=== PATIENT | male | born 1960 | race American Indian/Alaskan Native ===

== ENCOUNTER 2018-05-10 08:57 | Outpatient (CLI) | payer OTHER ==
--- NOTE | 2018-05-10 10:05 | XRay Report ---
XRAY LEFT SHOULDER THREE VIEWS: 05/10/18 08:57:00 CLINICAL: Shoulder pain. FINDINGS: Normal bone mineralization and no bone lesion. No fracture or dislocation. Very mild glenohumeral joint arthritis. Normal AC joint. The soft tissues are normal. IMPRESSION: Very mild glenohumeral joint arthritis.
== END 2018-05-10 08:58 | disposition home or self-care (01) ==
LOC: XRAY 08:57
PROVIDERS: ATTEND Internal Medicine
DX: M19.012 Primary osteoarthritis, left shoulder (principal)

== ENCOUNTER 2019-03-31 14:34 | Emergency (ER) | payer SELFPAY ==
--- NOTE | 2019-03-31 18:05 | Event Note ---
ED Screening Note ED Screening Note: states that he has dysuria that began 2-3 days states he has an enlarged prostate no urinary retention no fever no penile discharge no edema or pain in the testicles no abd pain PMHx none no allergies to meds This initial assessment/diagnostic orders/clinical plan/treatment(s) is/are subject to change based on patients health status, clinical progression and re- assessment by fellow clinical providers in the ED. Further treatment and workup at subsequent clinical providers discretion. Patient/guardian urged not to elope from the ED as their condition may be serious if not clinically assessed and managed. Initial orders include: UA
[2019-03-31 19:05] LABS: Bilirubin,Urine NEG (Negative); Blood,Urine SM (Negative); Color,Urine Yellow (Yellow); Mucus,Urine FEW /HPF; Protein,Urine <15 mg/dL mg/dL (Negative)
[2019-03-31] MEDS ORDERED: levoFLOXacin 500 MG TAB PO ONE (20:53)
[2019-03-31] MEDS ORDERED: PHENAZOPYRIDINE 200 MG TAB PO ONE (20:53)
--- NOTE | 2019-03-31 21:15 | Emergency Department Report ---
ED Male HPI - General Chief complaint: Urogenital-Male Stated complaint: BURNING WITH URINATION Time Seen by Provider: 03/31/19 18:04 Source: patient Mode of arrival: Ambulatory Limitations: No Limitations - History of Present Illness Initial comments: Patient is a 58-year-old, male with a history of chronic BPH who presents to the ED with complaint of acute onset persistent dysuria, urinary frequency and urgency for the last 3 days. Patient states that in the last 12 are dysuria and urinary urgency and frequency of worsened. Patient denies testicular pain, penile discharge, scrotal swelling, traumatic injury, low back pain, hematuria, fever, chills, nausea, vomiting, abdominal pain or diarrhea. MD Complaint: dysuria, other (urinary urgency and frequency) -: Sudden, days(s) (3) Location: penis Radiation: none Severity: severe Severity scale (0 -10): 7 Quality: burning, sharp Consistency: intermittent Improves with: none Worsens with: urination denies other symptoms, dysuria. denies: discharge, swelling, mass, rash, urinary retention, blood in urine, fever, nausea/vomiting, incontinence, other - Related Data Sexually active: Yes Previous Rx's Medication Instructions Recorded Last Taken Type Azithromycin [Zithromax TAB] 250 mg PO QDAY #6 tablet 10/27/14 Unknown Rx Promethazine /Codeine 5 ml PO Q6H PRN #100 ml 10/27/14 Unknown Rx [Phenergan/Codeine 6.25-10 mg/5Ml] Doxycycline Hyclate 100 mg PO Q12H #20 tablet. 03/31/19 Unknown Rx Phenazopyridine [Pyridium] 200 mg PO Q8H #21 tab 03/31/19 Unknown Rx levoFLOXacin [Levaquin TAB] 500 mg PO QDAY #10 tablet 03/31/19 Unknown Rx Allergies Allergy/AdvReac Type Severity Reaction Status Date / Time No Known Allergies Allergy Unverified 10/27/14 01:21 ED Review of Systems ROS: Stated complaint: BURNING WITH URINATION Other details as noted in HPI Constitutional: denies: chills, fever Eyes: denies: eye pain, eye discharge, vision change ENT: denies: ear pain, throat pain Respiratory: denies: cough, shortness of breath, wheezing Cardiovascular: denies: chest pain, palpitations Endocrine: no symptoms reported Gastrointestinal: denies: abdominal pain, nausea, diarrhea Genitourinary: urgency, dysuria, frequency Musculoskeletal: denies: back pain, joint swelling, arthralgia Skin: denies: rash, lesions Neurological: denies: headache, weakness, paresthesias Psychiatric: denies: anxiety, depression Hematological/Lymphatic: denies: easy bleeding, easy bruising ED Past Medical Hx - Past Medical History Previous Medical History?: Yes Hx HIV: Yes - Surgical History Past Surgical History?: No - Social History Smoking Status: Never Smoker Substance Use Type: None - Medications Home Medications: Home Medications Medication Instructions Recorded Confirmed Last Taken Type Azithromycin [Zithromax TAB] 250 mg PO QDAY #6 tablet 10/27/14 Unknown Rx Promethazine /Codeine 5 ml PO Q6H PRN #100 ml 10/27/14 Unknown Rx [Phenergan/Codeine 6.25-10 mg/5Ml] Doxycycline Hyclate 100 mg PO Q12H #20 tablet. 03/31/19 Unknown Rx Phenazopyridine [Pyridium] 200 mg PO Q8H #21 tab 03/31/19 Unknown Rx levoFLOXacin [Levaquin TAB] 500 mg PO QDAY #10 tablet 03/31/19 Unknown Rx ED Physical Exam - General Limitations: No Limitations General appearance: alert, in no apparent distress - Head Head exam: Present: atraumatic, normocephalic, normal inspection - Eye Eye exam: Present: normal appearance, PERRL, EOMI Pupils: Present: normal accommodation - ENT ENT exam: Present: normal exam, normal orophraynx, mucous membranes moist, TM's normal bilaterally, normal external ear exam - Neck Neck exam: Present: normal inspection, full ROM - Respiratory Respiratory exam: Present: normal lung sounds bilaterally. Absent: respiratory distress, wheezes, rales, chest wall tenderness, accessory muscle use, decreased breath sounds - Cardiovascular Cardiovascular Exam: Present: regular rate, normal rhythm, normal heart sounds. Absent: systolic murmur, diastolic murmur, rubs, gallop - GI/Abdominal GI/Abdominal exam: Present: soft, normal bowel sounds. Absent: tenderness, guarding, hyperactive bowel sounds, hypoactive bowel sounds - exam: Present: normal inspection External exam: Present: normal external exam - Extremities Exam Extremities exam: Present: normal inspection, full ROM, normal capillary refill - Back Exam Back exam: Present: normal inspection, full ROM. Absent: CVA tenderness (L), muscle spasm, paraspinal tenderness, vertebral tenderness - Neurological Exam Neurological exam: Present: alert, oriented X3, CN II-XII intact, normal gait, reflexes normal - Psychiatric Psychiatric exam: Present: normal affect, normal mood - Skin Skin exam: Present: warm, dry, intact, normal color. Absent: rash ED Course Vital Signs 03/31/19 14:40 Temperature 97.8 F Pulse Rate 76 Respiratory 13 Rate Blood Pressure 153/92 [Left] O2 Sat by Pulse 98 Oximetry ED Medical Decision Making - Medical Decision Making This is a 58-year-old male who presented to the ED with complaint of acute onset persistent severe dysuria, urinary frequency and urgency for 3 days. Patient is a history of chronic BPH and is not on any medications. In the ED, patient is alert and oriented 3 and is not in any distress with stable vital signs. Urinalysis shows significant urinary tract infection characterized by a moderate leukocyte esterase and > 126 WBCs and small hematuria. Patient was treated in the ED with Pyridium and Levaquin 500 mg by mouth and sent home on antibiotics and advised to follow-up with his primary care physician in 5-7 days for reevaluation. Patient was also referred today urologist, Dr. Lopez for further evaluation. Patient was advised to return to the ED immediately if symptoms get worse. - Differential Diagnosis UTI; Kidney stones; Urethritis; STD; BPH Critical care attestation.: If time is entered above; I have spent that time in minutes in the direct care of this critically ill patient, excluding procedure time. ED Disposition Clinical Impression: Acute urinary tract infection, Dysuria Disposition: DC-01 TO HOME OR SELFCARE Is pt being admited?: No Does the pt Need Aspirin: No Condition: Stable Instructions: Urinary Tract Infection in Men (ED), Dysuria (ED) Additional Instructions: Take medications with food, drink plenty of fluids and follow-up with your primary care physician in 5-7 days for reevaluation. Consider following up with a urologist, Dr. Lopez as advised. Return to the ED immediately if symptoms get worse. Prescriptions: Doxycycline Hyclate 100 mg PO Q12H #20 tablet. levoFLOXacin [Levaquin TAB] 500 mg PO QDAY #10 tablet Phenazopyridine [Pyridium] 200 mg PO Q8H #21 tab Referrals: NATHAN MCGOWAN MD [Staff Physician] - 3-5 Days GUILLE LOPEZ MD [Staff Physician] - 3-5 Days Time of Disposition: 21:17 Print Language: [place]
[2019-03-31 21:27] VITALS: BP 136/84
== END 2019-03-31 21:27 | disposition home or self-care (01) ==
LOC: ED 14:34
DX: N39.0 Urinary tract infection, site not specified (principal); Z21 Asymptomatic human immunodeficiency virus [HIV] infection status; Z79.899 Other long term (current) drug therapy
CPT/HCPCS: 81001